=== PATIENT | male | born 1940 | race Caucasian/White ===

== ENCOUNTER → 2022-08-10 13:56 | Outpatient (REF) | payer MEDICARE, SELFPAY ==
--- NOTE | 2022-08-10 14:06 | CA_ITS ---
Transthoracic Echocardiogram Patient (Last, First, Middle): Marcello Casiano F Gender: Male Date of : 1940 Age: 82 Procedure Date: 08/10/2022 Procedure Type: Transthoracic Echocardiogram Location: [place] Height: 182.88 cm Weight: 83.92 kg BSA: 2.06 m2 Heart Rate: bpm BP: 140 / 90 mmHg Bodily Injury Adjuster: TO Referring MD: Aurora Castro NP Quality Assurance Practice Manager: Rasta Alexander MD Symptoms: I48.91 AFIB Study Quality: Fair ECG Rhythm: Sinus Conclusions: - 1. Normal LV systolic function with LVEF of 55-60% with pseudonormal filling pattern 2. Normal cardiac valvular Dopplers 3. Mild biatrial enlargement 4. Normal RV systolic pressure 5. Mildly dilated ascending aorta at 4 cm 6. No pericardial effusion Findings Left Ventricle Normal left ventricular size, thickness, and systolic function. The visually estimated ejection fraction is between 55-60%. Spectral Doppler is indicative of a pseudonormal filling pattern. E/E prime ratio is between 8 and 15 consistent with indeterminate filling pressures. Right Ventricle Mildly increased right ventricular cavity size. There is normal right ventricular systolic function. Atria Mild biatrial enlargement. There is no evidence of interatrial shunt. Aortic Valve There is mild calcification of the aortic valve. There is mild thickening of the aortic valve. There is no aortic valve stenosis. There is no aortic valve regurgitation. Mitral Valve There is mild anterior and posterior mitral leaflet thickening. There is trace mitral valve regurgitation. There is no mitral valve stenosis. Pulmonic Valve The pulmonic valve is likely normal. Tricuspid Valve Normal tricuspid valve structure. There is trace tricuspid valve regurgitation. The right ventricular systolic pressure is normal. The right ventricular systolic pressure is 25 mmHg. Normal right atrial pressure. There is no evidence of pulmonary hypertension. Great Vessels The pulmonary artery was not well visualized. There is mild dilatation of the ascending aorta measuring 4.00 cm. Venous The inferior vena cava is normal in size and collapses greater than 50% with inspiration. Pericardium/Pleural There is no evidence of pericardial effusion. Prior Study Comparison No prior study available for comparison. Measurements 2D Linear Measurements IVSd: 1.09 0.6-0.9/0.6-1.0 cm LVIDd: 3.94 3.9-5.3/4.2-5.9 cm LVIDd Index: 1.91 2.4-3.2/2.2-3.1 cm/m2 LVIDs: 2.90 2.0-3.6 cm LVPWd: 0.94 0.7-1.1 cm LA Diam: 3.50 2.7-3.8/3.0-4.0 cm LAIDs Index: 1.70 1.5-2.3 cm/m2 LV Mass: 157.57 67-162/88-224 g LV Mass Index: 76.49 43-95/49-115 g/m2 LVOT Diam: 2.50 3.0+(-)1.3 cm 2D Systolic Function EF 4C: 55.50 >55% EF 2C: 59.80 >55% EF BiP: 57.60 >55% Mitral Valve MV Pk E: 0.67 MV PK A: 0.31 MV Decel Time: 217.00 E/A: 2.20 E'Lateral: 9.36 E'Medial: 7.51 E/E' Med: 8.90 E/E' Lat: 7.10 PHT: 64.00 MVA PHT: 3.44 Decel [place]wall: 3.08 Aortic Valve AoV Pk Abel: 0.86 AoV Mn Abel: 0.64 AoV VTI: 0.19 AoV Pk Grad: 3.00 Aov Mn Grad: 2.00 SKY Cont.VTI: 3.55 LVOT LVOT Pk Abel: 0.67 LVOT Mn Abel: 0.41 LVOT VTI: 0.14 LVOT Pk Grad: 2.00 LVOT Mn Grad: 1.00 LVOT Diam: 2.50 LVOT Area: 4.91 Diastolic Function MV Pk E: 0.67 MV Pk A: 0.31 E/A: 2.20 E'Medial: 7.51 E/E' Med: 8.90 E' Laterial: 9.36 E/E' Lat: 7.10 Right Ventricle TAPSE (mm): 25.20 TVS' Abel: 12.20 Tricuspid Valve TR Pk Abel: 2.36 TR Pk Grad: 22.00 RA Press: 3.00 RVSP: 25.00 Great Vessels Aorta Sinus of Valsalva: 3.82 2.0-3.[address] Ridge: 3.30 1.7-3.4 cm Ao Asc: 4.00 2.1-3.4 cm Updated in Other Vendor System with Status of Final Rasta Alexander MD electronically signed on 08/11/2022 3:28:17 PM with status of Final
== END ==
LOC: HO.CARD 13:56
PROVIDERS: PCP Nurse Practitioner Family; Visit Provider Nurse Practitioner Family
DX: I48.91 Unspecified atrial fibrillation (principal)
CPT/HCPCS: 93306